=== PATIENT | male | born 1995 | race Caucasian/White ===

== ENCOUNTER 2017-11-26 23:07 | Inpatient (IN) | payer OTHER ==
[2017-11-26] MEDS ORDERED: Promethazine HCl 25 MG/ML VIAL ONE (23:55)
[2017-11-27] MEDS ORDERED: diphenhydrAMINE 50 MG/ML VIAL ONE (00:32)
[2017-11-27] MEDS ORDERED: Acetaminophen 500 MG TAB ONE (00:32)
[2017-11-27 00:53] LABS: #Basophils 0.1 thou/uL (0.0-0.2); #Eosinphils 0.1 thou/uL (0.0-0.7); #Lymphocytes 2.8 thou/uL (1.20-3.40); #Monocytes 0.9 thou/uL (0.11-0.59); %Basophils 0.4 % (0.0-1.0); %Eosinophils 0.7 % (0.0-10.0); %Lymphocytes 21.6 % (21.0-51.0); %Monocytes 6.8 % (0.0-10.0); %Neutrophils 70.5 % (42.0-75.0); Hemoglobin 16.4 g/dL (14.0-18.0); Mean Corpuscular HGB CONC 34.9 g/dL (32.0-36.0); Mean Corpuscular Hemoglobin 31.5 pg (27.0-31.0); Mean Corpuscular Volume 90.4 fl (80.0-94.0); Mean Platelet Volume 6.3 fL (7.4-10.4); Platelet Count 256 thou/uL (130-400); RBC Distribution Width 11.9 % (11.5-14.5); Red Blood Cell (RBC) Count 5.19 mill/uL (4.70-6.10); White Blood Cell (WBC) Count 12.7 thou/uL (4.8-10.8)
[2017-11-27 01:28] LABS: ALT (SGPT) 27 U/L (8-55); AST (SGOT) 27 U/L (5-34); Albumin 4.7 g/dL (3.5-5.0); Alkaline Phosphatase 67 U/L (40-150); Anion Gap 16 mmol/L (10-20); BUN (Urea Nitrogen) 8 mg/dL (8.9-20.6); CK (CPK) 48 U/L (30-200); Calc. Creatinine Clearance 0 mL/min (70-130); Calcium 9.3 mg/dL (7.8-10.44); Carbon Dioxide 23 mmol/L (22-29); Chloride 101 mmol/L (98-107); Estimated GFR-MDRD Greater than 90; Globulin 3.5 g/dL (2.4-3.5); Glucose 106 mg/dL (70-105); Protein, Total 8.2 g/dL (6.0-8.3); Sodium 136 mmol/L (136-145)
[2017-11-27] MEDS ORDERED: Ketorolac Tromethamine 30 MG/ML VIAL ONE (02:54)
[2017-11-27] MEDS ORDERED: Lidocaine 1% (PF) 30 ML VIAL ONE (03:53)
[2017-11-27 04:24] LABS: CSF Source CSF; Tube # 1
[2017-11-27 04:28] LABS: Clarity Clear (Clear)
[2017-11-27 04:32] LABS: RBC Count - Manual 17 /cumm (None Seen); WBC/NonHematics Count - Manual 128 /cumm (0-5)
[2017-11-27 04:37] LABS: CSF Source CSF; Tube # 4
[2017-11-27 04:38] LABS: Clarity Clear (Clear)
[2017-11-27 04:44] LABS: RBC Count - Manual 10 /cumm (None Seen); WBC/NonHematics Count - Manual 322 /cumm (0-5)
[2017-11-27] MEDS ORDERED: Morphine 4 MG/ML VIAL ONE (04:59)
[2017-11-27] MEDS ORDERED: Magnesium Sulfate 2 GM/100 ML BAG ONE (04:59)
[2017-11-27 05:03] LABS: CSF, Glucose 40 mg/dl (40-70)
[2017-11-27 05:07] LABS: Cell Count Non Hematic 16 %; Eosinophils 1 %; Lymphocytes 52 %; Segmented Neutrophils 31 %
[2017-11-27 05:08] LABS: Cell Count Non Hematic 15 %; Lymphocytes 61 %; Segmented Neutrophils 24 %
[2017-11-27 05:26] LABS: CSF, Protein 206 mg/dL (15-40)
[2017-11-27] MEDS ORDERED: Ondansetron ODT 4 MG TAB PO PRN (06:06)
--- NOTE | 2017-11-27 06:51 | PDOC.FPRHP ---
- History of Present Illness Chief Complaint: RODRIGUEZ History of Present Illness: Patient is a 22yo M with PMH of migraines, presented to ED for a 1 day hx of what he thought to be migraine RODRIGUEZ, but it progressed in nature and became the worst RODRIGUEZ of his life. He also reports associated neck stiffness, fever, chills , photophobia, phonophobia, N/V, and pain radiating down his arms and legs. He tried [place] and OTC Migraine Relief medication with no relief. He denies ill contacts. Patient did not receive Meningococcal vaccine. ED Course: Patient received Morphine, Rocephin, Vancomycin, Magnesium Sulfate, Torodol, 2L NS, phenergan, Benadryl, and 1g of tylenol. An LP was performed in the ED, and found to have elevated WBC in the CSF, with lymphocytic predominance per ER physician. - Allergies/Adverse Reactions Allergies Allergy/AdvReac Type Severity Reaction Status Date / Time No Known Allergies Allergy Verified 11/27/17 08:17 - Home Medications Medication Instructions Recorded Confirmed Type No Known [No Known] 11/27/17 11/27/17 History - History PMHx: 1. Migraine RODRIGUEZ's 2. Seasonal Allergies PSHx: 1. R trigger finger FHx: 1. non-contributory Social: Reports occasional etoh use, no tobacco, no drug use. - Review of Systems General: reports: fever/chills, weight/appetite/sleep changes, night sweats Eyes: reports: eye pain ENT: denies: nasal congestion, rhinorrhea Respiratory: denies: cough, congestion, shortness of breath Cardiovascular: denies: chest pain, palpitation Gastrointestinal: reports: nausea, vomiting Genitourinary: denies: incontinence, dysuria Skin: denies: rashes, lesions Musculoskeletal: reports: pain, stiffness Neurological: denies: numbness, syncope Psychological: denies: anxiety, depression - Vital signs BP: [] HR: [] RR: [] Tmax: [] Pox: []% on [] Wt: [] - Physical Exam Constitutional: NAD, awake, alert and oriented, well developed HEENT: normocephalic and atraumatic, PERRLA, EOMI, grossly normal vision, grossly normal hearing -Neck: neck stiffness, negative kernigs, negative Brudzinski's Heart: RRR, normal S1/S2, no murmurs/rubs/gallops Lungs: CTAB, no respiratory distress Abdomen: soft, non-tender, bowel sounds present, no masses/distention Musculoskeletal: normal structure, normal tone Neurological: no focal deficit, CN II-XII intact, normal sensation Skin: no rash/lesions, good turgor, capillary refill <2 seconds Heme/Lymphatic: no unusual bruising or bleeding, no purpura Psychiatric: normal mood and affect FMR H&P: Results - Labs Result Diagrams: 11/27/17 00:42 11/27/17 00:42 Lab results: WBC 12.7 thou/uL (4.8-10.8) H 11/27/17 00:42 Hgb 16.4 g/dL (14.0-18.0) 11/27/17 00:42 Hct 46.9 % (42.0-52.0) 11/27/17 00:42 MCV 90.4 fl (80.0-94.0) 11/27/17 00:42 Plt Count 256 thou/uL (130-400) 11/27/17 00:42 Neutrophils % 70.5 % (42.0-75.0) 11/27/17 00:42 Sodium 136 mmol/L (136-145) 11/27/17 00:42 Potassium 4.0 mmol/L (3.5-5.1) 11/27/17 00:42 Chloride 101 mmol/L (98-107) 11/27/17 00:42 Carbon Dioxide 23 mmol/L (22-29) 11/27/17 00:42 BUN 8 mg/dL (8.9-20.6) L 11/27/17 00:42 Creatinine 0.97 mg/dL (0.6-1.3) 11/27/17 00:42 Glucose 106 mg/dL (70-105) H 11/27/17 00:42 Calcium 9.3 mg/dL (7.8-10.44) 11/27/17 00:42 Total Bilirubin 1.0 mg/dL (0.2-1.2) 11/27/17 00:42 AST 27 U/L (5-34) 11/27/17 00:42 ALT 27 U/L (8-55) 11/27/17 00:42 Alkaline Phosphatase 67 U/L (40-150) 11/27/17 00:42 Creatine Kinase 48 U/L (30-200) 11/27/17 00:42 Serum Total Protein 8.2 g/dL (6.0-8.3) 11/27/17 00:42 Albumin 4.7 g/dL (3.5-5.0) 11/27/17 00:42 FMR H&P: A/P - Problem List (1) Viral meningitis Current Visit: Yes Status: Acute Code(s): A87.9 - VIRAL MENINGITIS, UNSPECIFIED (2) Hx of migraines Current Visit: Yes Status: Acute Code(s): Z86.69 - PERSONAL HISTORY OF DIS OF THE NERVOUS SYS AND SENSE ORGANS (3) Seasonal allergies Current Visit: Yes Status: Acute Code(s): J30.2 - OTHER SEASONAL ALLERGIC RHINITIS - Plan Sepsis 2/2 suspected viral meningitis, r/o bacterial meningitis - CSF studies consistent with viral at this time but will cover for bacterial meningitis with Vancomycin and Rocephin until CSF cultures finalize - Will test for HSV and treat with Acyclovir until negative - Supportive care and pain meds prn for RODRIGUEZ Hx of Migraines - symptomatically improving. Continue pain meds prn for RODRIGUEZ. Seasonal Allergies - no sx at this time - monitor Disposition/LOS: Length of hospital stay: 2 days FMR H&P: Upper Level - Pertinent history 22 year old white male presents with headache since 10 a.m. yesterday. Reports it was the worst headache he has ever had and radiated to his neck and spine. He took [place] and and NSAID at home and reported little benefit. He reports associated neck stiffness, fever, blurry vision, cough, nasal congestion, nausea , and vomiting. Denies nasal congestion, sore throat, dyspnea, chest pain, abdominal pain, and diarrhea. He has a history of migraines but states this headache is far worse than any migraine he has ever had. PMH Migraines, elevated BP, seasonal allergies PSH Thumb Social Drinks 1 glass of wine weekly - Pertinent findings Tmax 101.1 RR 18 HR 103 BP 118/66 O2 sat 93% on RA Weight 95.3 kg Physical Exam General: NAD. Awake, alert, and oriented x4 Eyes: EOMI, PERRL, nonicteric ENT: MMM, oropharynx clear CV: RRR. No m/r/g. Pulses full and equal in all 4 extremities Respiratory: CTAB. No wheezing, rales, or rhonchi. Breathing nonlabored. Abdominal: NT, ND, no guarding or rebound Ext: No edema. Equal movements bilaterally Skin: No rash or ulcer. No palpable lesions Neuro: Neck stiff. CN II-XII intact. No focal deficits. Brudzinski sign negative Psych: Mood and affect appropriate. Judgement and insight intact. - Plan Date/Time: 11/27/17632 I, Roman Ramirez DO, have evaluated this patient and agree with findings/plan as outlined by internet e commerce specialist resident. Pertinent changes/additions are listed here. 22 year old white male presents with: 1) Suspected viral meningitis - Admit to medical. - CSF studies were not consistent with bacterial meningitis but will treat with vancomycin and Rocephin until cultures final as WBCs and neutrophils were increased. - Will test for HSV and treat with antivirals until resulted. - Supportive care and pain meds prn for headache 2) History of migraines - Pain improving. Will treat as needed 3) Questionable history of elevated blood pressure - BP normal now. Will monitor 4) Code Status Full
[2017-11-27 07:24] LABS: HIV (1/2) Antibody/Antigen Non-Reactive (NonReactive); HIV 1/2 INDEX 0.08 S/CO (<1.00)
--- NOTE | 2017-11-27 07:41 | RAD ---
CHEST 2 VIEWS: Date: 11/27/17 HISTORY: Chest pain and cough. FINDINGS: Cardiac silhouette and pulmonary vasculature are unremarkable. Mediastinum is midline. There is no co nfluent air space consolidation, pneumothorax, or pleural fluid apparent. IMPRESSION: No active cardiopulmonary abnormalities are demonstrated. POS: [facility]
[2017-11-27] MEDS: Metoclopramide HCl 10 MG TAB PO SCH ×4 (08:04→20:27)
[2017-11-27] MEDS: cefTRIAXone\\ROCEPHIN 2 GM in Sodium Chloride 0.9% 100 ML IVPB SCH (08:04)
[2017-11-27] MEDS: Sodium Chloride 0.9% 1,000 ML IV SCH ×4 (08:04→21:57)
--- NOTE | 2017-11-27 11:25 | HP ---
I have reviewed the history and physical of Dr. Yris Frausto. I have discussed the case with her. I have also examined the patient. HISTORY OF PRESENT ILLNESS: Briefly, Mr. Richardson is a 22-year-old white male patient who presented to the ER with a 1-2 day history of headache, neck stiffness, fever, chills, photophobia and phonophobi a as well as nausea. When seen in the ER, there was a suspicion of possible meningitis. LP did show inflammation consistent with probable viral meningitis. The patient, however, has been started on i ntravenous Rocephin and vancomycin, pending results of cultures. The Gram stain likewise was negativ e. I examined Mr. Richardson on the morning of 11/27/2017. This morning, he is awake and alert. He stil l complains of headache, but appears to be otherwise in no acute distress. OBJECTIVE: VITAL SIGNS: This morning, his temperature is 99.3, his blood pressure is 160/70, his pulse rate is 94 and regular, his respirations are 18. His room air oxygen saturation is 95%. EAR, NOSE AND THROAT: No erythema or exudate. NECK: Still slightly stiff, but able to flex somewhat. CARDIAC: Heart rhythm is regular, without gallop or murmur noted. LUNGS: Clear. No rales, rhonchi or wheezes are noted. ABDOMEN: Flat, soft. No guarding, rebound or rigidity. NEUROLOGIC: He is awake, alert, oriented x3. He demonstrates no focal deficits. LABORATORY DATA: CBC: White count is 12,700, hemoglobin 16.4, hematocrit 46.9 with an MCV of 90. C hemistry: Sodium 136, potassium 4.0, chloride 101, bicarbonate 23, BUN 8, creatinine 0.97. His gluc ose is 106. Liver enzymes are normal. CSF demonstrates 322 white blood cells, 61% lymphocytes, 24% neutrophils, and 10 RBCs. His CSF glucose is 40. His CSF protein is 206. His Gram stain is negativ e. These findings at least preliminarily are consistent with viral meningitis. His HIV is nonreacti ve. ASSESSMENT: Probable viral meningitis. PLAN: For now, we will continue broad spectrum antibiotics, Rocephin and vancomycin at least until t he end of the day or tomorrow when initial cultures are returned. Clinically, Mr. Richardson appears to be doing quite well.
[2017-11-27] MEDS: Acetaminophen 325 MG TAB PO PRN ×2 (11:32→20:27)
[2017-11-27] MEDS: Ketorolac Tromethamine 30 MG/ML VIAL IVP PRN ×2 (11:32→17:53)
[2017-11-27] MEDS ORDERED: ACYCLOVIR SODIUM IVPB SCH ×3 (14:00→16:00)
[2017-11-27] MEDS ORDERED: SODIUM CHLORIDE 0.9% IVPB SCH ×3 (14:00→16:00)
[2017-11-27] MEDS ORDERED: Cyclobenzaprine 10 MG TAB PO SCH (16:00)
[2017-11-27] MEDS ORDERED: Vancomycin HCl 1.5 GM in Sodium Chloride 0.9% 250 ML 250 ML IVPB SCH (17:00)
[2017-11-28] MEDS: Ketorolac Tromethamine 30 MG/ML VIAL IVP PRN (00:20)
[2017-11-28] MEDS: ACYCLOVIR SODIUM IVPB SCH ×3 (00:21→15:59)
[2017-11-28] MEDS: SODIUM CHLORIDE 0.9% IVPB SCH ×3 (00:21→15:59)
[2017-11-28] MEDS: Sodium Chloride 0.9% 1,000 ML IV SCH ×2 (00:27→10:42)
[2017-11-28] MEDS: Vancomycin HCl 1.5 GM in Sodium Chloride 0.9% 250 ML 300 ML IVPB SCH ×2 (04:43→18:02)
[2017-11-28] MEDS: Acetaminophen 325 MG TAB PO PRN ×3 (04:43→20:00)
--- NOTE | 2017-11-28 05:41 | PDOC.FM ---
- Subjective Subjective: Patient states his headache pain is at 4.5/10 this morning. Still having mild neck stiffness. No nausea or vomiting. He states he has not been eating much because still somewhat nauseous but he is taking PO fluids without difficulty. No focal weakness, no light sensitivity. - Objective Vital Signs & Weight: Vital Signs (12 hours) Temp Pulse Resp BP BP Pulse Ox 11/28/17 04:52 98.1 F 93 18 146/81 H 98 11/28/17 00:35 99.6 F 94 18 157/91 H 98 11/27/17 20:24 97.2 F L 94 18 141/88 H 98 I&O: 11/26/17 11/27/17 11/28/17 06:59 06:59 06:59 Output Total 1350 Balance -1350 Result Diagrams: 11/28/17 05:39 11/27/17 00:42 <Martin Hanks - Last Filed: 11/28/17 10:22> - Objective Vital Signs & Weight: Vital Signs (12 hours) Temp Pulse Resp BP Pulse Ox 11/28/17 04:52 98.1 F 93 18 146/81 H 98 11/28/17 00:35 99.6 F 94 18 157/91 H 98 I&O: 11/27/17 11/28/17 11/29/17 06:59 06:59 06:59 Intake Total 1400 Output Total 2350 Balance -950 Result Diagrams: 11/28/17 05:39 11/27/17 00:42 <Julianna Vu - Last Filed: 11/28/17 10:51> Phys Exam - Physical Examination Constitutional: NAD HEENT: PERRLA, moist MMs Neck: no nodes, full ROM Respiratory: no wheezing, clear to auscultation bilateral Cardiovascular: RRR, no significant murmur Gastrointestinal: soft, non-tender, no distention, positive bowel sounds Musculoskeletal: no edema, pulses present Neurological: non-focal, moves all 4 limbs can touch chin to chest, mild neck stiffness Psychiatric: normal affect, A&O x 3 Skin: no rash, cap refill <2 seconds <Martin Hanks - Last Filed: 11/28/17 10:22> Dx/Plan (1) HTN (hypertension) Code(s): I10 - ESSENTIAL (PRIMARY) HYPERTENSION Status: Acute (2) Hx of migraines Code(s): Z86.69 - PERSONAL HISTORY OF DIS OF THE NERVOUS SYS AND SENSE ORGANS Status: Acute (3) Viral meningitis Code(s): A87.9 - VIRAL MENINGITIS, UNSPECIFIED Status: Acute - Plan Plan: # Sepsis 2/2 suspected viral meningitis, r/o bacterial meningitis - cont vanc, acyclovir, rocephin - GS negative, awaiting CSF cultures, HSV, West Nile - clinically improving - Supportive care and pain meds prn for RODRIGUEZ # Hx of Migraines - symptomatically improving. Continue pain meds prn for RODRIGUEZ. # Seasonal Allergies - no sx at this time - monitor # HTN - diet-controlled in the past - will hold off meds for now bc pain could be confounding - anticipate lisinopril on d/c Dispo: 1-2 days pending cultures <Martin Hanks - Last Filed: 11/28/17 10:22> Attending Addendum - Attending Addendum Date/Time: 11/28/17 1050 I personally evaluated the patient and discussed the management with Dr. Hanks. I agree with the History, Examination, Assessment and Plan documented above with any addition or exceptions noted below. The patient notes his light sensitivity is improving as is his headache which he now rates as 4/10. Will add west nile titer to csf. Likely has viral meningitis but continuing antibiotics and acyclovir until cultures result. <Julianna Vu - Last Filed: 11/28/17 10:51>
[2017-11-28 05:54] LABS: #Eosinphils 0.1 thou/uL (0.0-0.7); #Lymphocytes 2.6 thou/uL (1.20-3.40); #Monocytes 0.9 thou/uL (0.11-0.59); #Neutrophils 4.9 thou/uL (1.40-6.50); %Basophils 0.5 % (0.0-1.0); %Eosinophils 1.3 % (0.0-10.0); %Lymphocytes 30.5 % (21.0-51.0); %Monocytes 10.5 % (0.0-10.0); %Neutrophils 57.2 % (42.0-75.0); Hemoglobin 14.5 g/dL (14.0-18.0); Mean Corpuscular Hemoglobin 31.3 pg (27.0-31.0); Mean Corpuscular Volume 89.2 fl (80.0-94.0); Mean Platelet Volume 5.6 fL (7.4-10.4); Platelet Count 221 thou/uL (130-400); RBC Distribution Width 11.6 % (11.5-14.5); Red Blood Cell (RBC) Count 4.65 mill/uL (4.70-6.10); White Blood Cell (WBC) Count 8.5 thou/uL (4.8-10.8)
[2017-11-28] MEDS: Metoclopramide HCl 10 MG TAB PO SCH ×4 (09:02→20:00)
[2017-11-28] MEDS: cefTRIAXone\\ROCEPHIN 2 GM in Sodium Chloride 0.9% 100 ML IVPB SCH (10:41)
[2017-11-28 14:40] VITALS: BMI 32.8
[2017-11-28 16:25] LABS: Vancomycin, Trough 4.4 ug/mL
[2017-11-28] MEDS ORDERED: VANCOMYCIN IVPB PRN (17:09)
[2017-11-29] MEDS: ACYCLOVIR SODIUM IVPB SCH ×2 (00:45→08:29)
[2017-11-29] MEDS: SODIUM CHLORIDE 0.9% IVPB SCH ×2 (00:45→08:29)
[2017-11-29 04:28] LABS: #Eosinphils 0.3 thou/uL (0.0-0.7); #Lymphocytes 2.5 thou/uL (1.20-3.40); #Monocytes 0.9 thou/uL (0.11-0.59); #Neutrophils 3.7 thou/uL (1.40-6.50); %Basophils 0.5 % (0.0-1.0); %Eosinophils 4.1 % (0.0-10.0); %Lymphocytes 33.7 % (21.0-51.0); %Monocytes 11.5 % (0.0-10.0); %Neutrophils 50.2 % (42.0-75.0); Mean Corpuscular HGB CONC 35.5 g/dL (32.0-36.0); Mean Corpuscular Hemoglobin 31.9 pg (27.0-31.0); Mean Platelet Volume 5.9 fL (7.4-10.4); Platelet Count 227 thou/uL (130-400); White Blood Cell (WBC) Count 7.4 thou/uL (4.8-10.8)
[2017-11-29] MEDS: Ketorolac Tromethamine 30 MG/ML VIAL IVP PRN (04:38)
--- NOTE | 2017-11-29 05:56 | PDOC.FM ---
- Subjective Subjective: This morning patient states his headache is almost totally resolved. He states he was able to eat and drink yesterday without difficulty. Denies any pain at this time. No neck stiffness, just somewhat sore, able to touch chin to chest w/ o difficulty. - Objective Vital Signs & Weight: Vital Signs (12 hours) Temp Pulse Resp BP BP Pulse Ox 11/29/17 04:30 97.9 F 87 18 131/77 97 11/29/17 00:00 98.6 F 92 20 133/78 97 11/28/17 20:00 99.2 F 97 20 97 11/28/17 19:55 99.2 F 97 20 144/91 H 97 11/28/17 18:00 98.3 F 100 18 141/88 H 96 Weight Admit Weight 95 kg Weight 95 kg I&O: 11/27/17 11/28/17 11/29/17 06:59 06:59 06:59 Intake Total 1400 2850 Output Total 2350 2100 Balance -950 750 Result Diagrams: 11/29/17 04:02 11/27/17 00:42 <Martin Hanks - Last Filed: 11/29/17 07:27> - Objective Vital Signs & Weight: Vital Signs (12 hours) Temp Pulse Resp BP Pulse Ox 11/29/17 08:00 97.6 F 78 16 128/74 98 11/29/17 04:30 97.9 F 87 18 131/77 97 Weight Admit Weight 95 kg Weight 95 kg I&O: 11/28/17 11/29/17 11/30/17 06:59 06:59 06:59 Intake Total 1400 2850 Output Total 2350 2100 Balance -950 750 Result Diagrams: 11/29/17 04:02 11/27/17 00:42 <Julianna Vu - Last Filed: 11/29/17 12:48> Phys Exam - Physical Examination Constitutional: NAD HEENT: PERRLA, moist MMs Neck: no nodes, full ROM Respiratory: no wheezing, clear to auscultation bilateral Cardiovascular: RRR, no significant murmur, no rub Gastrointestinal: soft, non-tender, no distention, positive bowel sounds Musculoskeletal: no edema, pulses present Neurological: non-focal, moves all 4 limbs Kernigshivadezifrancieki negative Psychiatric: normal affect, A&O x 3 Skin: no rash, cap refill <2 seconds <Martin Hanks - Last Filed: 11/29/17 07:27> Dx/Plan (1) HTN (hypertension) Code(s): I10 - ESSENTIAL (PRIMARY) HYPERTENSION Status: Acute (2) Hx of migraines Code(s): Z86.69 - PERSONAL HISTORY OF DIS OF THE NERVOUS SYS AND SENSE ORGANS Status: Acute (3) Viral meningitis Code(s): A87.9 - VIRAL MENINGITIS, UNSPECIFIED Status: Acute - Plan Plan: Plan: # Sepsis 2/2 suspected viral meningitis, r/o bacterial meningitis - CSF culture negative at 48hrs, stop vanc/rocephin - continue acyclovir, awaiting viral PCR results - clinically improving - Supportive care and pain meds prn for RODRIGUEZ # Hx of Migraines - no pain this AM. Continue pain meds prn for RODRIGUEZ. # Seasonal Allergies - no sx at this time - monitor # HTN - diet-controlled in the past - will hold off meds for now bc pain could be confounding - anticipate lisinopril on d/c Dispo: anticipate d/c this PM pending viral PCR results, clinical status <Martin Hanks - Last Filed: 11/29/17 07:27> Attending Addendum - Attending Addendum Date/Time: 11/29/17 1244 I personally evaluated the patient and discussed the management with Dr. Hanks. I agree with the History, Examination, Assessment and Plan documented above with any addition or exceptions noted below. The patient is clinically improved. Bacterial cultures negative so far. Will d /c home on acyclovir. <Julianna Vu - Last Filed: 11/29/17 12:48>
[2017-11-29] MEDS: Metoclopramide HCl 10 MG TAB PO SCH ×2 (08:29→11:43)
[2017-11-29] MEDS: Sodium Chloride 0.9% 1,000 ML IV SCH (08:38)
[2017-11-29 09:05] VITALS: BP 128/74; TEMP 97.6
--- NOTE | 2017-11-29 14:58 | DIS-2 ---
DATE OF ADMISSION: 11/27/2017 DATE OF DISCHARGE: 11/29/2017 RESIDENT: Dr. Martin Hanks. ADMITTING ATTENDING: Dr. Nicolas Ellison. DISCHARGE ATTENDING: Dr. Julianna Vu. CONSULTATIONS: None. PROCEDURES: Lumbar puncture. PRIMARY DIAGNOSIS: Viral meningitis. SECONDARY DIAGNOSES: Hypertension, history of migraines, seasonal allergies. DISCHARGE MEDICATIONS: Acyclovir 400 mg t.i.d., lisinopril 5 mg. DISCONTINUED MEDICATIONS: Vancomycin, Rocephin. HISTORY OF PRESENT ILLNESS AND HOSPITAL COURSE: A 22-year-old male with past medical history of migr aines, who presented to the ED with 1 day history of what appeared to be a migraine, but progressed a nd became the worst headache of his life. CT head was negative. He developed neck stiffness, fevers , chills, photophobia, phonophobia, nausea, vomiting, and pain radiating down his arms and legs. He was started on treatment for meningitis including vancomycin, Rocephin, and acyclovir. An LP was per formed in the ED, which was found to have elevated white count with lymphocytic predominance. CSF wa s suggestive of viral meningitis. Gram stain was negative, but positive for white blood cells. Cult ures were negative for bacteria, 48 hours. HSV and West Nile PCR are pending at time of discharge. We will send patient home on acyclovir until HSV PCR result test negative. We will call patient with the results. DISPOSITION: 1. Stable. 2. Location: Home. 3. Diet: Regular. 4. Activity: As tolerated. 5. Followup: The patient will establish PCP in [place], [place]. We will call the patient with results of HSV PCR.
[2017-11-30 20:10] LABS: HSV 2 - DNA Positive (Negative)
--- NOTE | 2017-12-02 18:18 | PDOC.EVN ---
Event Note - Event Note Event Note: Called patient x2 on phone number provided and left VM regarding +HSV PCR Sent acyclovir for 7 more days to his pharmacy
== END 2017-11-29 12:44 | disposition home or self-care (01) | DRG 872 ==
LOC: ERS 23:07 → ERHOLD 11-27 05:22 → 3SE 11-27 07:20 → T4-A 11-28 17:48
PROVIDERS: ADMIT Family Medicine; ATTEND Family Medicine
PROC: 009U3ZX Drainage of Spinal Canal, Percutaneous Approach, Diagnostic (ICD-10-PCS; principal; 2017-11-28)
DX: A41.9 Sepsis, unspecified organism (principal); A87.9 Viral meningitis, unspecified; I10 Essential (primary) hypertension; Z79.899 Other long term (current) drug therapy; J30.2 Other seasonal allergic rhinitis
CPT/HCPCS: 36415; 62270; 71046; 80053; 80202; 82550; 82945; 84157; 85025; 85060; 87040; 87070; 87149; 87205; 87389; 87529; 87798; 87804; 89051; 94760; 96361; 96365; 96367; 96375; J0133; J0696; J1200; J1885; J2001; J2270; J2550; J3370; J3475; J7050

== ENCOUNTER 2020-04-09 11:54 | Emergency (ER) | payer OTHER ==
[2020-04-09 18:08] LABS: SARS-CoV-2 MS2 Positive; SARS-CoV-2 N Gene Positive; SARS-CoV-2 S Gene Positive; SARS-CoV-2 by NAA DETECTED (NotDetected); SARS-CoV-2 orf1ab Positive
== END 2020-04-09 12:24 | disposition home or self-care (01) ==
LOC: ERS 11:54
DX: R05 Cough (principal); R51 Headache; R50.9 Fever, unspecified; R43.8 Other disturbances of smell and taste; Z20.828 Contact with and (suspected) exposure to other viral communicable diseases; I10 Essential (primary) hypertension; Z79.899 Other long term (current) drug therapy
CPT/HCPCS: 87635; 99284; U0003

== ENCOUNTER 2021-02-17 22:21 | Emergency (ER) | payer OTHER ==
[2021-02-17 23:05] LABS: #Basophils 0.1 thou/uL (0.0-0.2); #Eosinphils 0.1 thou/uL (0.0-0.7); #Lymphocytes 2.8 thou/uL (1.20-3.40); #Monocytes 0.6 thou/uL (0.11-0.59); #Neutrophils 7.3 thou/uL (1.40-6.50); %Basophils 0.7 % (0.0-1.0); %Eosinophils 0.5 % (0.0-10.0); %Monocytes 5.9 % (0.0-10.0); %Neutrophils 66.9 % (42.0-75.0); Mean Corpuscular HGB CONC 34.1 g/dL (32.0-36.0); Mean Corpuscular Hemoglobin 31.4 pg (27.0-31.0); Mean Corpuscular Volume 91.9 fL (78.0-98.0); Mean Platelet Volume 6.4 fL (7.4-10.4); Platelet Count 239 thou/uL (130-400); RBC Distribution Width 11.9 % (11.5-14.5); Red Blood Cell (RBC) Count 5.42 mill/uL (4.70-6.10); White Blood Cell (WBC) Count 10.8 thou/uL (4.8-10.8)
[2021-02-17 23:25] LABS: ALT (SGPT) 33 U/L (8-55); AST (SGOT) 20 U/L (5-34); Albumin 4.9 g/dL (3.5-5.0); Alkaline Phosphatase 55 U/L (40-110); Anion Gap 14 mmol/L (10-20); BUN (Urea Nitrogen) 6 mg/dL (8.9-20.6); Bilirubin, Total 0.7 mg/dL (0.2-1.2); Calc. Creatinine Clearance 0 mL/min (70-130); Calcium 9.5 mg/dL (7.8-10.44); Carbon Dioxide 27 mmol/L (22-29); Chloride 101 mmol/L (98-107); Globulin 3.1 g/dL (2.4-3.5); Glucose 119 mg/dL (70-105); Potassium 3.9 mmol/L (3.5-5.1); Sodium 138 mmol/L (136-145)
[2021-02-18 01:53] LABS: SARS-CoV-2 NAA Rapid Test Not Detected (NotDetected)
[2021-02-18] MEDS ORDERED: Ketorolac Tromethamine 30 MG/ML VIAL ONE (02:07)
[2021-02-18] MEDS ORDERED: Metoclopramide HCl 10 MG/2 ML VIAL ONE (02:07)
[2021-02-18] MEDS ORDERED: diphenhydrAMINE 50 MG/ML VIAL ONE (02:07)
[2021-02-18 03:25] LABS: Color Of CSF Supernatant COLORLESS (Colorless); Tube # 2; Unspun CSF Color COLORLESS (Colorless)
[2021-02-18 03:41] LABS: CSF, Glucose 54 mg/dl (40-70); CSF, Protein 165 mg/dL (15-40)
[2021-02-18 04:03] LABS: CSF Source CSF; Clarity Clear (Clear); Tube # 4
[2021-02-18 04:09] LABS: Cell Count Non Hematic 3 %; Lymphocytes 29 %
[2021-02-18 04:41] LABS: Segmented Neutrophils 68 %
== END 2021-02-18 04:42 | disposition home or self-care (01) ==
LOC: ERS 22:21
DX: A87.9 Viral meningitis, unspecified (principal); Z20.822 Contact with and (suspected) exposure to COVID-19; I10 Essential (primary) hypertension; G43.909 Migraine, unspecified, not intractable, without status migrainosus
CPT/HCPCS: 0240U; 36415; 80053; 82945; 84157; 85025; 85060; 87070; 87205; 87252; 87255; 89051; 96374; 96375; J1200; J1885; J2765